=== PATIENT | male | born 1975 | race Caucasian/White ===

== ENCOUNTER → 2017-08-18 | Outpatient (CLI) | payer MEDICARE ==
[~2017-08-18] MED LIST: CHLO200T2 PO; FLUC200T PO; HYDR-3307 PO; NYST1000 PO
== END | disposition home or self-care (01) ==
LOC: LAB 07:55
PROVIDERS: ATTEND Internal Medicine Hematology & Oncology
DX: D69.3 Immune thrombocytopenic purpura (principal); Z88.6 Allergy status to analgesic agent
CPT/HCPCS: 36415; 80375; G0480

== ENCOUNTER 2018-09-27 02:42 | Emergency (ER) | payer MEDICARE ==
[~2018-09-27] VITALS: Ht 188 cm; Wt 79.3 kg
[2018-09-27 03:20] LABS: BASOPHILS # (AUTO) 0.02 x10^3/uL (0-0.1); BASOPHILS % (AUTO) 0 % (0-1); EOSINOPHILS # (AUTO) 0.03 x10^3/uL (0-0.4); EOSINOPHILS % (AUTO) 0 % (1-7); LYMPHOCYTES # (AUTO) 1.03 x10^3/uL (1-3.4); LYMPHOCYTES % (AUTO) 7 % (22-44); MD NO; MEAN CORPUSCULAR HEMOGLOBIN 32.6 pg (27.5-34.5); MEAN CORPUSCULAR HGB CONC 34.3 g/dL (33.2-36.2); MEAN CORPUSCULAR VOLUME 94.9 fL (81-97); MEAN PLATELET VOLUME 9.4 fL (7.4-10.4); MONOCYTES # (AUTO) 1.33 x10^3/uL (0.2-0.8); MONOCYTES % (AUTO) 9 % (2-9); NEUTROPHILS # (AUTO) 12.08 x10^3/uL (1.8-6.8); NEUTROPHILS % (AUTO) 83 % (42-75); PLATELET COUNT 204 x10^3/uL (130-400); RED BLOOD COUNT 4.14 x10^6/uL (4.38-5.82); RED CELL DISTRIBUTION WIDTH 13.1 % (9.4-14.8)
[2018-09-27 03:28] LABS: ANION GAP 9 mmol/L (5-15); CALCIUM 9.4 mg/dL (8.5-10.1); CHLORIDE 101 mmol/L (98-107); CREATININE 0.85 mg/dL (0.7-1.3)
[2018-09-27] MEDS ORDERED: SODIUM CHLORIDE 0.9% 1,000ML IVBOLUS ONE (03:30)
[2018-09-27 03:55] LABS: RAPID INFLUENZA A Negative (Negative); RAPID INFLUENZA B Negative (Negative)
[2018-09-27 04:18] VITALS: BP 134/91
== END 2018-09-27 04:45 | disposition left against medical advice (07) ==
LOC: ED 04:08
DX: R05 Cough (principal); R07.9 Chest pain, unspecified; F41.1 Generalized anxiety disorder; E11.9 Type 2 diabetes mellitus without complications; F17.200 Nicotine dependence, unspecified, uncomplicated
CPT/HCPCS: 36415; 71045; 80048; 82040; 85025; 87400; 93005; 99284; J7030

== ENCOUNTER 2018-12-04 05:48 | Emergency (ER) | payer MEDICARE ==
[~2018-12-04] VITALS: Ht 190.5 cm; Wt 78.7 kg
[2018-12-04] MEDS ORDERED: LORazepam 1MG TABLET ONE (06:09)
--- NOTE | 2018-12-04 06:11 | NUR ---
PT REPORTS HE HAS HAD A COUGH X3 MONTHS PT IS ANXIOUS VS STABLE. PT SEEN BY HITESH BURR. WILL CONTINUE TO MONITOR.
[2018-12-04] MEDS ORDERED: LORazepam 1MG TABLET PO ONE (06:30)
[2018-12-04 06:32] VITALS: BP 120/73
--- NOTE | 2018-12-04 06:32 | NUR ---
PT GIVEN JUICE, OKAYED BY HITESH BURR PT RESTING IN ROOM. VS STABLE. CALL LIGHT IN PLACE. WILL CONTINUE TO MONITOR.
== END 2018-12-04 06:45 | disposition home or self-care (01) ==
LOC: ED 06:40
DX: J06.9 Acute upper respiratory infection, unspecified (principal); J18.9 Pneumonia, unspecified organism; E11.9 Type 2 diabetes mellitus without complications; F41.9 Anxiety disorder, unspecified
CPT/HCPCS: 71046; 82962; 99283

== ENCOUNTER 2019-01-29 13:56 | Inpatient (IN) | payer MEDICARE ==
[~2019-01-29] VITALS: Ht 188 cm; Wt 78.0 kg
[2019-01-29 14:44] LABS: ALBUMIN 4.5 g/dL (3.4-5.0); ANION GAP 8 mmol/L (5-15); CALCIUM 8.8 mg/dL (8.5-10.1); CHLORIDE 102 mmol/L (98-107); CREATININE 0.84 mg/dL (0.7-1.3)
[2019-01-29] MEDS ORDERED: OXYcodone/APAP 5/325MG TABLET ONE (14:54)
[2019-01-29 14:57] LABS: BASOPHILS # (AUTO) 0.03 x10^3/uL (0-0.1); BASOPHILS % (AUTO) 1 % (0-1); EOSINOPHILS # (AUTO) 0.05 x10^3/uL (0-0.4); EOSINOPHILS % (AUTO) 1 % (1-7); LYMPHOCYTES # (AUTO) 1.37 x10^3/uL (1-3.4); LYMPHOCYTES % (AUTO) 28 % (22-44); MD SCAN; MEAN CORPUSCULAR HEMOGLOBIN 32.1 pg (27.5-34.5); MEAN CORPUSCULAR HGB CONC 33.7 g/dL (33.2-36.2); MEAN CORPUSCULAR VOLUME 95.2 fL (81-97); MEAN PLATELET VOLUME 11.5 fL (7.4-10.4); MONOCYTES # (AUTO) 0.57 x10^3/uL (0.2-0.8); MONOCYTES % (AUTO) 12 % (2-9); NEUTROPHILS # (AUTO) 2.88 x10^3/uL (1.8-6.8); NEUTROPHILS % (AUTO) 59 % (42-75); RED BLOOD COUNT 4.91 x10^6/uL (4.38-5.82)
[2019-01-29 15:00] LABS: PLATELET COUNT 10 x10^3/uL (130-400)
[2019-01-29] MEDS ORDERED: OXYcodone/APAP 5/325MG TABLET PO ONE (15:00)
[2019-01-29] MEDS ORDERED: DEXAMETHASONE 4 MG/ML, 5ML PO ONE (15:30)
[2019-01-29] MEDS ORDERED: DEXAMETHASONE 4 MG/ML, 5ML ONE (15:54)
[2019-01-29] MEDS ORDERED: ENALAPRILAT 1.25 MG/ML, 2ML IVPush PRN (17:00)
[2019-01-29] MEDS ORDERED: ONDANSETRON ODT 4 MG PO PRN (17:00)
[2019-01-29] MEDS ORDERED: POTASSIUM CHLORIDE 20 MEQ TAB.ER.PRT PO ONE (17:00)
[2019-01-29] MEDS ORDERED: DOCUSATE 100 MG CAPSULE PO PRN (17:00)
[2019-01-29] MEDS ORDERED: ONDANSETRON 2MG/ML, 2ML IVPush PRN (17:00)
[2019-01-29] MEDS ORDERED: POLYETHYLENE GLYCOL 17 GM PACKET PO PRN (17:00)
[2019-01-29] MEDS ORDERED: BISACODYL 10 MG SUPP PR PRN (17:00)
[2019-01-29] MEDS ORDERED: ALPR0.5T PO (17:34)
[2019-01-29] MEDS ORDERED: OXYC10TA72 PO (17:34)
[2019-01-29 17:46] VITALS: BP 131/73
[2019-01-29 18:45] VITALS: BP 133/79
[2019-01-29] MEDS: NICOTINE 14MG/24 HR PATCH.TD24 TD SCH (19:25)
[2019-01-29] MEDS: ALPRazolam 1MG TAB PO PRN (19:25)
[2019-01-29] MEDS: OXYcodone IR 5MG TABLET PO PRN (19:42)
[2019-01-30 00:44] VITALS: BP 111/73
[2019-01-30 04:51] LABS: ALANINE AMINOTRANSFERASE 49 U/L (12-78); ALBUMIN 3.7 g/dL (3.4-5.0); ANION GAP 5 mmol/L (5-15); CALCIUM 9.1 mg/dL (8.5-10.1); CHLORIDE 106 mmol/L (98-107)
[2019-01-30 04:53] LABS: MEAN CORPUSCULAR HEMOGLOBIN 32.8 pg (27.5-34.5); MEAN CORPUSCULAR HGB CONC 34.3 g/dL (33.2-36.2); MEAN CORPUSCULAR VOLUME 95.5 fL (81-97); RED BLOOD COUNT 4.82 x10^6/uL (4.38-5.82)
[2019-01-30 04:54] LABS: ALKALINE PHOSPHATASE 93 U/L (45-117); BILIRUBIN,TOTAL 0.9 mg/dL (0.2-1.0); CREATININE 0.78 mg/dL (0.7-1.3); TOTAL PROTEIN 6.8 g/dL (6.4-8.2)
[2019-01-30 06:38] LABS: MEAN PLATELET VOLUME 11.2 fL (7.4-10.4)
[2019-01-30 06:45] LABS: PLATELET COUNT 7 x10^3/uL (130-400)
[2019-01-30 06:47] LABS: MD SCAN
[2019-01-30 06:49] LABS: LYMPHOCYTES # (AUTO) 0.43 x10^3/uL (1-3.4); LYMPHOCYTES % (AUTO) 14 % (22-44); MONOCYTES % (AUTO) 2 % (2-9); NEUTROPHILS # (AUTO) 2.51 x10^3/uL (1.8-6.8); NEUTROPHILS % (AUTO) 84 % (42-75)
[2019-01-30 06:50] LABS: MONOCYTES # (AUTO) 0.05 x10^3/uL (0.2-0.8)
[2019-01-30 06:58] VITALS: BP 99/60
[2019-01-30] MEDS: ALPRazolam 1MG TAB PO PRN ×2 (08:24→19:51)
[2019-01-30] MEDS: OXYcodone IR 5MG TABLET PO PRN ×2 (08:27→19:51)
[2019-01-30] MEDS: DEXAMETHASONE 4 MG TABLET PO SCH (08:28)
[2019-01-30 15:50] VITALS: BP 101/67
[2019-01-30 19:28] VITALS: BP 110/60
[2019-01-30] MEDS: NICOTINE 14MG/24 HR PATCH.TD24 TD SCH (19:51)
[2019-01-31 01:00] VITALS: BP 108/69
[2019-01-31 04:53] LABS: ANION GAP 2 mmol/L (5-15); CALCIUM 8.8 mg/dL (8.5-10.1); CHLORIDE 109 mmol/L (98-107)
[2019-01-31 04:54] LABS: CREATININE 0.74 mg/dL (0.7-1.3)
[2019-01-31 05:05] LABS: MEAN CORPUSCULAR HEMOGLOBIN 32.4 pg (27.5-34.5); MEAN CORPUSCULAR HGB CONC 33.6 g/dL (33.2-36.2); MEAN CORPUSCULAR VOLUME 96.3 fL (81-97); MEAN PLATELET VOLUME 11.6 fL (7.4-10.4); PLATELET COUNT 6 x10^3/uL (130-400); RED BLOOD COUNT 4.62 x10^6/uL (4.38-5.82); RED CELL DISTRIBUTION WIDTH 14.8 % (9.4-14.8)
[2019-01-31 05:06] LABS: BASOPHILS # (AUTO) 0.01 x10^3/uL (0-0.1); BASOPHILS % (AUTO) 0 % (0-1); EOSINOPHILS % (AUTO) 0 % (1-7); LYMPHOCYTES # (AUTO) 0.68 x10^3/uL (1-3.4); LYMPHOCYTES % (AUTO) 6 % (22-44); MD SCAN; MONOCYTES # (AUTO) 0.77 x10^3/uL (0.2-0.8); MONOCYTES % (AUTO) 7 % (2-9); NEUTROPHILS # (AUTO) 9.44 x10^3/uL (1.8-6.8); NEUTROPHILS % (AUTO) 87 % (42-75)
[2019-01-31] MEDS: DEXAMETHASONE 4 MG TABLET PO SCH (08:18)
[2019-01-31] MEDS: OXYcodone IR 5MG TABLET PO PRN ×2 (08:18→20:40)
[2019-01-31] MEDS: ALPRazolam 1MG TAB PO PRN ×2 (08:18→20:40)
[2019-01-31] MEDS ORDERED: IMMUNE GLOB (GAMUNEX) 10GM/100ML IVPB ONE (08:30)
[2019-01-31 08:42] VITALS: BP 120/61
[2019-01-31 12:58] VITALS: BP 101/68
[2019-01-31 19:25] VITALS: BP 115/61
[2019-01-31] MEDS: NICOTINE 14MG/24 HR PATCH.TD24 TD SCH (20:39)
[2019-02-01 03:40] VITALS: BP 101/59
[2019-02-01 04:59] LABS: MEAN CORPUSCULAR HEMOGLOBIN 33.2 pg (27.5-34.5); MEAN CORPUSCULAR HGB CONC 34.5 g/dL (33.2-36.2); MEAN CORPUSCULAR VOLUME 96.2 fL (81-97); RED BLOOD COUNT 4.44 x10^6/uL (4.38-5.82); RED CELL DISTRIBUTION WIDTH 14.8 % (9.4-14.8)
[2019-02-01 05:16] LABS: PLATELET COUNT 14 x10^3/uL (130-400)
[2019-02-01 06:01] LABS: BASOPHILS # (AUTO) 0.03 x10^3/uL (0-0.1); BASOPHILS % (AUTO) 0 % (0-1); EOSINOPHILS % (AUTO) 0 % (1-7); LYMPHOCYTES # (AUTO) 0.64 x10^3/uL (1-3.4); LYMPHOCYTES % (AUTO) 7 % (22-44); MD SCAN; MONOCYTES # (AUTO) 0.65 x10^3/uL (0.2-0.8); MONOCYTES % (AUTO) 7 % (2-9); NEUTROPHILS # (AUTO) 8.51 x10^3/uL (1.8-6.8); NEUTROPHILS % (AUTO) 87 % (42-75)
[2019-02-01 08:19] VITALS: BP 101/60
[2019-02-01] MEDS: DEXAMETHASONE 4 MG TABLET PO SCH (08:39)
[2019-02-01] MEDS: ALPRazolam 1MG TAB PO PRN (08:39)
[2019-02-01] MEDS: OXYcodone IR 5MG TABLET PO PRN (08:40)
[2019-02-01 13:25] VITALS: BP 126/74
== END 2019-02-01 13:30 | disposition left against medical advice (07) | DRG 813 ==
LOC: ED 14:44 → EDIP 15:41 → 3NW 17:26
PROVIDERS: ADMIT Hospitalist; ATTEND Hospitalist
DX: D69.3 Immune thrombocytopenic purpura (principal); F11.20 Opioid dependence, uncomplicated; F13.20 Sedative, hypnotic or anxiolytic dependence, uncomplicated; F17.210 Nicotine dependence, cigarettes, uncomplicated; I10 Essential (primary) hypertension; F41.1 Generalized anxiety disorder; F25.9 Schizoaffective disorder, unspecified; F10.10 Alcohol abuse, uncomplicated; F43.10 Post-traumatic stress disorder, unspecified; E87.6 Hypokalemia; E11.40 Type 2 diabetes mellitus with diabetic neuropathy, unspecified; G89.29 Other chronic pain; S40.021A Contusion of right upper arm, initial encounter; Z53.20 Procedure and treatment not carried out because of patient's decision for unspecified reasons; Z53.21 Procedure and treatment not carried out due to patient leaving prior to being seen by health care provider; X58.XXXA Exposure to other specified factors, initial encounter; Y93.89 Activity, other specified; Y92.89 Other specified places as the place of occurrence of the external cause; Y99.8 Other external cause status
CPT/HCPCS: 36415; 80048; 80053; 82040; 83735; 84100; 85025; 99285; G0378; J1100; J1561

== ENCOUNTER 2019-02-08 10:05 | Emergency (ER) | payer MEDICARE ==
[~2019-02-08] VITALS: Ht 190.5 cm; Wt 82.1 kg
[~2019-02-08 10:05] MED LIST changes: +ALPR0.5T PO; +OXYC10TA72 PO
[2019-02-08 10:07] VITALS: BP 96/65
--- NOTE | 2019-02-08 10:43 | NUR ---
in room 10. oriented to room for safety.
[2019-02-08] MEDS ORDERED: SILVER SULF. CRM 1% , 25GM TP ONE (11:00)
[2019-02-08] MEDS ORDERED: SILVER SULF. CRM 1% , 25GM ONE (11:03)
[2019-02-08] MEDS ORDERED: CEFAZOLIN 1,000 MG ONE (11:06)
[2019-02-08] MEDS ORDERED: SULFAMETH./TRIMETHOPRIM DS 800MG/160MG TABLET ONE (11:06)
[2019-02-08] MEDS ORDERED: SULFAMETH./TRIMETHOPRIM DS 800MG/160MG TABLET PO ONE (11:30)
[2019-02-08] MEDS ORDERED: CEFAZOLIN 1,000 MG IM ONE (11:30)
[2019-02-11] MEDS ORDERED: ABX (03:45)
== END 2019-02-08 11:24 | disposition home or self-care (01) ==
LOC: ED 11:11
DX: T24.211D Burn of second degree of right thigh, subsequent encounter (principal); L03.115 Cellulitis of right lower limb; E11.9 Type 2 diabetes mellitus without complications; F17.200 Nicotine dependence, unspecified, uncomplicated; F98.8 Other specified behavioral and emotional disorders with onset usually occurring in childhood and adolescence; X08.8XXD Exposure to other specified smoke, fire and flames, subsequent encounter
CPT/HCPCS: 96372; 99283; J0690

== ENCOUNTER 2020-02-02 06:00 | Emergency (ER) | payer MEDICARE, OTHER ==
[~2020-02-02] VITALS: Ht 188 cm; Wt 89.2 kg
[~2020-02-02 06:00] MED LIST changes: +ABX; +DEXA1.5T26 PO; -HYDR-3307 PO; +HYDR-36 PO
[2020-02-02 06:09] VITALS: BP 117/86
[2020-02-02 07:19] LABS: MEAN CORPUSCULAR HEMOGLOBIN 32.2 pg (27.5-34.5); MEAN CORPUSCULAR HGB CONC 34.1 g/dL (33.2-36.2); MEAN CORPUSCULAR VOLUME 94.5 fL (81-97); MEAN PLATELET VOLUME 9.9 fL (7.4-10.4); PLATELET COUNT 85 x10^3/uL (130-400); RED BLOOD COUNT 5.14 x10^6/uL (4.38-5.82); RED CELL DISTRIBUTION WIDTH 14.4 % (9.4-14.8)
[2020-02-02 07:20] LABS: BASOPHILS # (AUTO) 0.06 x10^3/uL (0-0.1); BASOPHILS % (AUTO) 1 % (0-1); EOSINOPHILS # (AUTO) 0.26 x10^3/uL (0-0.4); EOSINOPHILS % (AUTO) 3 % (1-7); LYMPHOCYTES # (AUTO) 2.39 x10^3/uL (1-3.4); LYMPHOCYTES % (AUTO) 31 % (22-44); MD SCAN; MONOCYTES # (AUTO) 0.58 x10^3/uL (0.2-0.8); MONOCYTES % (AUTO) 8 % (2-9); NEUTROPHILS # (AUTO) 4.41 x10^3/uL (1.8-6.8); NEUTROPHILS % (AUTO) 57 % (42-75)
== END 2020-02-02 07:43 | disposition home or self-care (01) ==
LOC: ED 06:21
DX: D69.6 Thrombocytopenia, unspecified (principal); E11.9 Type 2 diabetes mellitus without complications; Z88.6 Allergy status to analgesic agent
CPT/HCPCS: 36415; 85025; 99283

== ENCOUNTER 2020-05-31 15:26 | Emergency (ER) | payer MEDICARE ==
[~2020-05-31] VITALS: Ht 190.5 cm; Wt 92.8 kg
[~2020-05-31 15:26] MED LIST changes: +HYDR-3246 PO; -HYDR-36 PO
[2020-05-31 15:50] VITALS: BP 120/82
[2020-05-31 16:44] LABS: ALBUMIN 3.8 g/dL (3.4-5.0); ANION GAP 5 mmol/L (5-15); CALCIUM 9.3 mg/dL (8.5-10.1); CHLORIDE 112 mmol/L (98-107); CREATININE 0.86 mg/dL (0.7-1.3)
[2020-05-31 16:50] LABS: INTERNATIONAL NORMALIZED RATIO 0.9 (0.93-1.1); PROTHROMBIN TIME 9.5 Seconds (9.6-11.5)
--- NOTE | 2020-05-31 17:00 | NUR ---
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
[2020-05-31 17:02] LABS: MEAN CORPUSCULAR HEMOGLOBIN 33.3 pg (27.5-34.5); MEAN CORPUSCULAR HGB CONC 33.9 g/dL (33.2-36.2); RED BLOOD COUNT 5.19 x10^6/uL (4.38-5.82); RED CELL DISTRIBUTION WIDTH 14.7 % (9.4-14.8)
[2020-05-31 17:13] LABS: BASOPHILS # (AUTO) 0.07 x10^3/uL (0-0.1); BASOPHILS % (AUTO) 1 % (0-1); EOSINOPHILS # (AUTO) 0.24 x10^3/uL (0-0.4); EOSINOPHILS % (AUTO) 3 % (1-7); LYMPHOCYTES # (AUTO) 2.82 x10^3/uL (1-3.4); LYMPHOCYTES % (AUTO) 36 % (22-44); MD SCAN; MONOCYTES # (AUTO) 0.66 x10^3/uL (0.2-0.8); MONOCYTES % (AUTO) 9 % (2-9); NEUTROPHILS # (AUTO) 4.04 x10^3/uL (1.8-6.8); NEUTROPHILS % (AUTO) 52 % (42-75); PLATELET COUNT 66 x10^3/uL (130-400)
== END 2020-05-31 18:20 | disposition home or self-care (01) ==
LOC: ED 17:45
DX: S90.812A Abrasion, left foot, initial encounter (principal); D69.3 Immune thrombocytopenic purpura; E11.9 Type 2 diabetes mellitus without complications; F17.200 Nicotine dependence, unspecified, uncomplicated; X58.XXXA Exposure to other specified factors, initial encounter; Y93.89 Activity, other specified; Y92.89 Other specified places as the place of occurrence of the external cause; Y99.8 Other external cause status
CPT/HCPCS: 36415; 80048; 82040; 85025; 85610; 85730; 99283

== ENCOUNTER 2020-09-25 21:47 | Emergency (ER) | payer MEDICARE ==
[~2020-09-25] VITALS: Ht 190.5 cm; Wt 85.0 kg
[2020-09-25 21:51] VITALS: BP 111/75
== END 2020-09-25 22:46 | disposition home or self-care (01) ==
LOC: ED 22:40
DX: S20.219A Contusion of unspecified front wall of thorax, initial encounter (principal); S40.021A Contusion of right upper arm, initial encounter; S00.11XA Contusion of right eyelid and periocular area, initial encounter; F41.9 Anxiety disorder, unspecified; E11.9 Type 2 diabetes mellitus without complications; W19.XXXA Unspecified fall, initial encounter; Y93.89 Activity, other specified; Y92.89 Other specified places as the place of occurrence of the external cause; Y99.8 Other external cause status
CPT/HCPCS: 99283

== ENCOUNTER 2020-10-28 11:59 | Emergency (ER) | payer MEDICARE ==
[~2020-10-28] VITALS: Ht 190.5 cm; Wt 96.1 kg
[2020-10-28 12:50] LABS: BASOPHILS % (AUTO) 1 % (0-1); EOSINOPHILS % (AUTO) 0 % (1-7); LYMPHOCYTES % (AUTO) 39 % (22-44); MEAN CORPUSCULAR HEMOGLOBIN 34.9 pg (27.5-34.5); MEAN CORPUSCULAR HGB CONC 34.3 g/dL (33.2-36.2); MEAN PLATELET VOLUME 10.5 fL (7.4-10.4); MONOCYTES % (AUTO) 11 % (2-9); NEUTROPHILS % (AUTO) 49 % (42-75); RED BLOOD COUNT 4.29 x10^6/uL (4.38-5.82); RED CELL DISTRIBUTION WIDTH 14.9 % (9.4-14.8)
[2020-10-28 12:59] LABS: ALANINE AMINOTRANSFERASE 35 U/L (12-78); ANION GAP 6 mmol/L (5-15); CALCIUM 8.1 mg/dL (8.5-10.1); CHLORIDE 111 mmol/L (98-107); CREATININE 1.06 mg/dL (0.7-1.3)
[2020-10-28] MEDS ORDERED: SODIUM CHLORIDE FLUSH 10ML SYR IVF ONE (13:00)
[2020-10-28 13:02] LABS: ALKALINE PHOSPHATASE 81 U/L (45-117); BILIRUBIN,TOTAL 0.5 mg/dL (0.2-1.0); TOTAL PROTEIN 6.3 g/dL (6.4-8.2)
--- NOTE | 2020-10-28 13:09 | NUR ---
REPORT FROM ESMER LANCE.
[2020-10-28 13:18] LABS: MD SCAN; PLATELET COUNT 14 x10^3/uL (130-400)
--- NOTE | 2020-10-28 14:08 | NUR ---
PT IN CT.
[2020-10-28 14:44] VITALS: BP 99/66
[2020-10-28] MEDS ORDERED: OMNIPAQUE 350 MG/ML, 100ML BOTTLE ONE (14:54)
--- NOTE | 2020-10-28 15:05 | NUR ---
pt agressive with nursing staff, security called. escorted off premises
== END 2020-10-28 15:18 | disposition home or self-care (01) ==
LOC: ED 13:09
DX: F10.220 Alcohol dependence with intoxication, uncomplicated (principal); D69.3 Immune thrombocytopenic purpura; R91.1 Solitary pulmonary nodule; E11.9 Type 2 diabetes mellitus without complications; F17.210 Nicotine dependence, cigarettes, uncomplicated; Y90.0 Blood alcohol level of less than 20 mg/100 ml
CPT/HCPCS: 36415; 74177; 80053; 85025; 99285; Q9967

== ENCOUNTER 2020-11-24 16:10 | Emergency (ER) | payer MEDICARE ==
--- NOTE | 2020-11-24 16:34 | NUR ---
video game programmer note: While pt was sitting in chair waiting for a room he became agitated at having to wait. This RN attempted to explain ER process to pt. Pt yelling at staff, pulling off armband and throwing it at staff. Pt advised that if he would like to be seen in the ER staff will evaluate him but he cannot yell at staff and throw things at staff. Pt endorses that he wants to leave. Pt advised that he needs to wait until his PIV is removed. Pt states "Oh, you want this?" and pulled out his IV despite multiple staff members telling him not to. PIV tip visualized to be intact when pt threw it on the floor. Staff members asked pt if he would like staff to apply a gauze dressing to PIV site which had started bleeding. Pt declines, states "Keep your fucking hands off me!" Pt provided with gauze which he promptly threw on the ground. Pt ambulatory out of ER through ambulance doors with steady gait. Security contacted to escort pt off property.
== END 2020-11-24 16:50 | disposition left against medical advice (07) ==
LOC: ED 16:30
DX: R68.89 Other general symptoms and signs (principal); Z53.21 Procedure and treatment not carried out due to patient leaving prior to being seen by health care provider

== ENCOUNTER 2020-12-01 12:19 | Emergency (ER) | payer MEDICARE ==
[~2020-12-01] VITALS: Ht 188 cm; Wt 83.0 kg
[~2020-12-01 12:19] MED LIST changes: -HYDR-3246 PO; +HYDR-3248 PO
[2020-12-01 13:15] LABS: ALANINE AMINOTRANSFERASE 37 U/L (12-78); ALBUMIN 3.1 g/dL (3.4-5.0); ANION GAP 8 mmol/L (5-15); CALCIUM 8.3 mg/dL (8.5-10.1); CHLORIDE 108 mmol/L (98-107)
[2020-12-01 13:16] LABS: BASOPHILS % (AUTO) 0 % (0-1); EOSINOPHILS % (AUTO) 0 % (1-7); LYMPHOCYTES % (AUTO) 30 % (22-44); MEAN CORPUSCULAR HEMOGLOBIN 35.2 pg (27.5-34.5); MEAN CORPUSCULAR HGB CONC 34.5 g/dL (33.2-36.2); MEAN PLATELET VOLUME 11.5 fL (7.4-10.4); MONOCYTES % (AUTO) 9 % (2-9); NEUTROPHILS % (AUTO) 61 % (42-75)
[2020-12-01 13:18] LABS: ALKALINE PHOSPHATASE 115 U/L (45-117); BILIRUBIN,TOTAL 0.6 mg/dL (0.2-1.0); TOTAL PROTEIN 6.2 g/dL (6.4-8.2)
[2020-12-01 13:42] LABS: MD SCAN; PLATELET COUNT 25 x10^3/uL (130-400)
--- NOTE | 2020-12-01 13:43 | NUR ---
REPORT TO SHELBIE LANCE.
--- NOTE | 2020-12-01 13:45 | NUR ---
ASSUMED CARE FROM CASI CONTRERAS.
--- NOTE | 2020-12-01 14:37 | NUR ---
PT PROVIDED MEAL TRAY AND DRINKS.
[2020-12-01 14:49] VITALS: BP 115/78
== END 2020-12-01 14:52 | disposition home or self-care (01) ==
LOC: ED 13:35
DX: D69.3 Immune thrombocytopenic purpura (principal); E11.9 Type 2 diabetes mellitus without complications; F10.220 Alcohol dependence with intoxication, uncomplicated; Y90.0 Blood alcohol level of less than 20 mg/100 ml
CPT/HCPCS: 36415; 80053; 83690; 85025; 99283

== ENCOUNTER 2021-03-01 15:42 | Emergency (ER) | payer SELFPAY ==
[~2021-03-01] VITALS: Ht 188 cm; Wt 85.0 kg
[2021-03-01 15:44] VITALS: BP 95/58
--- NOTE | 2021-03-01 16:11 | NUR ---
PT AT IMAGING
[2021-03-01] MEDS ORDERED: ACETAMINOPHEN 325 MG TABLET ONE (16:51)
--- NOTE | 2021-03-01 16:53 | NUR ---
PT REFUSING PAIN TYLENOL.
[2021-03-01] MEDS ORDERED: ACETAMINOPHEN 325 MG TABLET PO ONE (17:00)
--- NOTE | 2021-03-01 17:02 | NUR ---
PT TO DESK REQUESTING AMA FORM. PT GIVEN ONE. PT WROTE "FUCH YOU" ON AMA FORM. PT LEFT VIA AMBULANCE BAY DOORS.
== END 2021-03-01 17:14 | disposition left against medical advice (07) ==
LOC: ED 16:30
DX: S00.03XA Contusion of scalp, initial encounter (principal); S20.212A Contusion of left front wall of thorax, initial encounter; S40.011A Contusion of right shoulder, initial encounter; S80.02XA Contusion of left knee, initial encounter; S80.01XA Contusion of right knee, initial encounter; W18.30XA Fall on same level, unspecified, initial encounter; Y93.89 Activity, other specified; Y92.009 Unspecified place in unspecified non-institutional (private) residence as the place of occurrence of the external cause; Y99.8 Other external cause status
CPT/HCPCS: 70450; 72125; 99285

== ENCOUNTER 2021-03-07 14:58 | Emergency (ER) | payer SELFPAY ==
[~2021-03-07] VITALS: Ht 188 cm; Wt 89.2 kg
[2021-03-07 14:58] VITALS: BP 93/63
--- NOTE | 2021-03-07 15:08 | NUR ---
PT BRUISING LEFT SCAPULA, LEFT LOWER BACK, RIGHT UPPER BACK, BILATERAL KNEES, ANTERIOR FACE, LEFT UPPER ARM, RIGHT FOREARM, AND R/L UPPER CHEST FROM MULTIPLE FALLS OVER THE AST 3 WEEKS. PT DENIES ANY LOSS OF CONSIOUS WITH FALLS.
[2021-03-07 16:03] LABS: BASOPHILS % (AUTO) 1 % (0-1); EOSINOPHILS % (AUTO) 0 % (1-7); LYMPHOCYTES % (AUTO) 35 % (22-44); MEAN CORPUSCULAR HEMOGLOBIN 34.4 pg (27.5-34.5); MEAN CORPUSCULAR HGB CONC 33.7 g/dL (33.2-36.2); MEAN PLATELET VOLUME 11.9 fL (7.4-10.4); MONOCYTES % (AUTO) 10 % (2-9); NEUTROPHILS % (AUTO) 53 % (42-75); RED BLOOD COUNT 3.57 x10^6/uL (4.38-5.82); RED CELL DISTRIBUTION WIDTH 13.9 % (9.4-14.8)
[2021-03-07 16:06] LABS: ALANINE AMINOTRANSFERASE 45 U/L (12-78); ALBUMIN 2.9 g/dL (3.4-5.0); ANION GAP 6 mmol/L (5-15); CHLORIDE 114 mmol/L (98-107); CREATININE 0.68 mg/dL (0.7-1.3); PROTHROMBIN TIME 10.7 Seconds (9.6-11.5)
[2021-03-07 16:08] LABS: ALKALINE PHOSPHATASE 69 U/L (45-117); BILIRUBIN,TOTAL 1.2 mg/dL (0.2-1.0); TOTAL PROTEIN 5.4 g/dL (6.4-8.2)
[2021-03-07] MEDS ORDERED: ACETAMINOPHEN 325 MG TABLET ONE (16:27)
[2021-03-07] MEDS ORDERED: ACETAMINOPHEN 325 MG TABLET PO ONE (16:30)
[2021-03-07 16:33] LABS: PLATELET COUNT 25 x10^3/uL (130-400)
[2021-03-07 16:34] LABS: MD SCAN
--- NOTE | 2021-03-07 16:54 | NUR ---
TASK RN: PT WANTING TO LEAVE. AWARE PLT COUNT IS 25. PT REMOVED HIS PIV. SITE CDI. PT REQUESTS FOOD, SANDWICH AND JUICE PROVIDED. CLEAN SHIRT AND BUS PASS PROVIDED
== END 2021-03-07 17:09 | disposition left against medical advice (07) ==
LOC: ED 17:00
DX: S09.90XA Unspecified injury of head, initial encounter (principal); D69.3 Immune thrombocytopenic purpura; F10.220 Alcohol dependence with intoxication, uncomplicated; H11.33 Conjunctival hemorrhage, bilateral; R94.31 Abnormal electrocardiogram [ECG] [EKG]; E11.9 Type 2 diabetes mellitus without complications; W18.30XA Fall on same level, unspecified, initial encounter; Y90.0 Blood alcohol level of less than 20 mg/100 ml; Y93.89 Activity, other specified; Y92.89 Other specified places as the place of occurrence of the external cause; Y99.8 Other external cause status
CPT/HCPCS: 36415; 70450; 70486; 71045; 72125; 80053; 80320; 85025; 85610; 85730; 93005; 99285; G0480

== ENCOUNTER 2021-04-14 11:07 | Emergency (ER) | payer SELFPAY ==
[~2021-04-14] VITALS: Ht 182.9 cm; Wt 101.0 kg
--- NOTE | 2021-04-14 11:09 | NUR ---
REPORT OF PT FROM BRIMMER BLOCKER STUDENT, RICARDO. PT AMBULATES TO ROOM WITH SLOW BUT STEADY GAIT. PT ADMITS TO ETOH INTOXICATION. PT CONFUSED BUT CONVERSES WITH SLURRED SPEECH. SUBHASH KENNY AT FOR PT HISTORY AND ASSESSMENT. PT EDUCATED ON ER PROCESS AND POC BUT DOES NOT VERBALIZE UNDERSTANDING. PT DOES NOT TO TREATMENT PLAN. PT WITH STABLE VS UPON ARRIVAL TO [facility] ED AND HAS CALL LIGHT WITHIN REACH.
[2021-04-14 12:09] LABS: BASOPHILS % (AUTO) 1 % (0-1); EOSINOPHILS % (AUTO) 1 % (1-7); LYMPHOCYTES % (AUTO) 25 % (22-44); MEAN CORPUSCULAR HEMOGLOBIN 35.4 pg (27.5-34.5); MEAN CORPUSCULAR HGB CONC 34.1 g/dL (33.2-36.2); MEAN PLATELET VOLUME 11.5 fL (7.4-10.4); MONOCYTES % (AUTO) 11 % (2-9); NEUTROPHILS % (AUTO) 62 % (42-75); RED BLOOD COUNT 4.07 x10^6/uL (4.38-5.82); RED CELL DISTRIBUTION WIDTH 14.7 % (9.4-14.8)
[2021-04-14 12:18] LABS: INTERNATIONAL NORMALIZED RATIO 1.01 (0.93-1.1); PROTHROMBIN TIME 10.8 Seconds (9.6-11.5)
[2021-04-14 12:20] LABS: ANION GAP 8 mmol/L (5-15); CHLORIDE 110 mmol/L (98-107); CREATININE 0.76 mg/dL (0.7-1.3)
[2021-04-14 12:21] VITALS: BP 117/71
--- NOTE | 2021-04-14 12:23 | NUR ---
PT PROVIDED JUICE PER REQUEST AT THIS TIME.
[2021-04-14 12:27] LABS: CALCIUM 8.2 mg/dL (8.5-10.1)
[2021-04-14 12:29] LABS: PLATELET COUNT 9 x10^3/uL (130-400)
--- NOTE | 2021-04-14 12:39 | NUR ---
DR GUADARRAMA AWARE OF PT PLATELET COUNT AND PLANS TO CONSULT WITH HEMATOLOGY AND PAST VISIT RECORDS. NO NEW ORDERS RECEIVED AT THIS TIME.
--- NOTE | 2021-04-14 13:11 | NUR ---
ATTEMPTED TO MEDICATE PT FOR MARIN AT THIS TIME. PT ASLEEP IN [facility]. WILL CONTINUE TO MONITOR.
--- NOTE | 2021-04-14 13:24 | NUR ---
PT WALKED TO FRONT NURSES STATION AND SAID HE WAS LEAVING AND THAT WE WERE INCOMPETENT HERE. PT DEMANDING FOOD AND GETTING AGGRESSIVE WITH STAFF. PT EDUCATED ON NEED TO STAY DUE TO LOW PLATELET COUNT FROM DR GUADARRAMA, BUT PT WANTS TO LEAVE AMA AND REFUSES TO STAY TO SIGN AMA PAPERWORK. BEN, ONLINE ACTIVIST, NOTIFIED.
[2021-04-14] MEDS ORDERED: IMMUNE GLOB (GAMUNEX) 10GM/100ML IVPB ONE (13:30)
[2021-04-14] MEDS ORDERED: ACETAMINOPHEN 500 MG TABLET PO ONE (14:00)
== END 2021-04-14 13:30 | disposition left against medical advice (07) ==
LOC: ED 11:13
DX: D69.6 Thrombocytopenia, unspecified (principal); F10.129 Alcohol abuse with intoxication, unspecified; Y90.0 Blood alcohol level of less than 20 mg/100 ml; F17.210 Nicotine dependence, cigarettes, uncomplicated
CPT/HCPCS: 36415; 80048; 80320; 82040; 85025; 85610; 99283; G0480

== ENCOUNTER 2021-04-20 00:37 | Emergency (ER) | payer SELFPAY ==
[~2021-04-20] VITALS: Ht 190.5 cm; Wt 82.0 kg
[2021-04-20 02:07] VITALS: BP 102/74
== END 2021-04-20 02:17 | disposition home or self-care (01) ==
LOC: ED 00:54
DX: F10.220 Alcohol dependence with intoxication, uncomplicated (principal); Y90.0 Blood alcohol level of less than 20 mg/100 ml
CPT/HCPCS: 99283

== ENCOUNTER 2021-05-02 21:42 | Emergency (ER) | payer MEDICARE ==
[~2021-05-02] VITALS: Ht 177.8 cm; Wt 85.0 kg
[2021-05-02 22:13] VITALS: BP 135/78
[2021-05-02] MEDS ORDERED: DIPHENHYDRAMINE 25 MG CAPSULE PO ONE (22:30)
[2021-05-02] MEDS ORDERED: DIPHENHYDRAMINE 25 MG CAPSULE ONE (22:37)
--- NOTE | 2021-05-02 22:45 | NUR ---
Patient given discharge instructions and they have confirmed that they understand the instructions. Patient ambulatory with steady gait. NAD, all questions answered appropriately, denies additional needs at this time. No personal belongings left in room after discharge. provided taxi voucher for [email or web address].
== END 2021-05-02 22:47 | disposition home or self-care (01) ==
LOC: ED 22:41
DX: L24.9 Irritant contact dermatitis, unspecified cause (principal); F17.210 Nicotine dependence, cigarettes, uncomplicated; Z72.9 Problem related to lifestyle, unspecified; R00.0 Tachycardia, unspecified; E11.9 Type 2 diabetes mellitus without complications
CPT/HCPCS: 99283; 99406; Q0163

== ENCOUNTER 2021-05-24 13:04 | Emergency (ER) | payer SELFPAY ==
[~2021-05-24] VITALS: Ht 190.5 cm; Wt 81.8 kg
[2021-05-24 13:28] VITALS: BP 114/82
--- NOTE | 2021-05-24 13:33 | NUR ---
BIB EMS FOR BUG BITE L LEG X 2 WKS. PT LIVES AT THE [address] [facility]. PT HAVING DELUSIONS. PER EMS WANTS TO BE CALLED AIR MONSE. 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 +ETOH UNKNOWN AMOUNT. PER EMS PT WANTS STAFF TO GIVE HIM METH. PT DENIES METH USE IN ROOM. VS PTS HR 120-130, 95% RA, SBP 117. PT WAS DECON'D FOR MULTIPLE BED BUGS. MONITORS APPLIED. VSS. PT RESTING ON GURNEY. NADN. WARM BLANKETS PROVIDED. CALL LIGHT IN REACH. ERP DR. SOLANO AT BEDSIDE FOR EVAL.
--- NOTE | 2021-05-24 14:07 | NUR ---
PER ERP DR. SOLANO NO NEED TO TREAT PT HR AND PT IS OKAY TO DC.
== END 2021-05-24 14:08 | disposition home or self-care (01) ==
LOC: ED 13:43
DX: T24.102A Burn of first degree of unspecified site of left lower limb, except ankle and foot, initial encounter (principal); T31.0 Burns involving less than 10% of body surface; F15.159 Other stimulant abuse with stimulant-induced psychotic disorder, unspecified; X08.8XXA Exposure to other specified smoke, fire and flames, initial encounter; Y93.89 Activity, other specified; Y92.89 Other specified places as the place of occurrence of the external cause; Y99.8 Other external cause status
CPT/HCPCS: 99283

== ENCOUNTER 2021-06-15 15:33 | Emergency (ER) | payer SELFPAY ==
--- NOTE | 2021-06-15 16:24 | NUR ---
NIL X2 SEARCHED LOBBY
== END 2021-06-15 16:49 ==
LOC: ED 16:00
DX: R26.2 Difficulty in walking, not elsewhere classified (principal); Z53.21 Procedure and treatment not carried out due to patient leaving prior to being seen by health care provider

== ENCOUNTER 2021-06-15 16:45 | Emergency (ER) | payer SELFPAY ==
[~2021-06-15] VITALS: Ht 188 cm; Wt 75.0 kg
[2021-06-15 16:48] VITALS: BP 165/84
--- NOTE | 2021-06-15 16:52 | NUR ---
Pt says he went to [employer] to get a [employer] and is back. Pt told me to "fuck off and lose weight" then he jumped up out of the wc and walked to the lobby. Security called to monitor pt in lobby.
--- NOTE | 2021-06-15 17:56 | NUR ---
Pt WALKED from triage to room 6 with steady gait. When this nurse told pt we would get him dc soon, pt said "but I can't walk".
== END 2021-06-15 18:47 | disposition home or self-care (01) ==
LOC: ED 18:33
DX: G89.29 Other chronic pain (principal); M25.561 Pain in right knee; E11.9 Type 2 diabetes mellitus without complications; F17.200 Nicotine dependence, unspecified, uncomplicated
CPT/HCPCS: 99283